=== PATIENT | male | born 1940 | race Caucasian/White ===

== ENCOUNTER 2020-07-12 21:30 | Emergency (ER) | payer OTHER, BC ==
[~2020-07-12] VITALS: Ht 160 cm; Wt 56.7 kg
[2020-07-12 21:46] VITALS: Ht 160 cm; Wt 56.7 kg
[2020-07-12 22:59] LABS: PLATELET COUNT 208 x10^3mcL (152-348)
[2020-07-12 23:05] LABS: RED CELL DISTRIBUTION WIDTH 19.9 % (12.1-16.2)
[2020-07-12 23:21] LABS: CALCIUM 6.5 mg/dL (8.5-10.1); CARBON DIOXIDE 24.5 mmol/L (21-32); CHLORIDE SERUM 100 mmol/L (98-107); CREATININE SERUM 0.7 mg/dL (0.7-1.3); GLUCOSE SERUM 122 mg/dL (74-106); POTASSIUM SERUM 3.8 mmol/L (3.5-5.1); SODIUM SERUM 136 mmol/L (136-145)
[2020-07-12 23:26] LABS: ALKALINE PHOSPHATASE 775 U/L (46-116); ALT/SGPT 47 U/L (16-63); AST/SGOT 182 U/L (15-37); BILIRUBIN TOTAL 0.7 mg/dL (0.20-1.00); MAGNESIUM 2.7 mg/dL (1.8-2.4); TOTAL PROTEIN, SERUM 6.2 g/dL (6.4-8.2)
[2020-07-12 23:30] LABS: ALBUMIN 2.8 g/dL (3.4-5.0)
[2020-07-13 00:16] LABS: MONOCYTE 12 % (0-7); SEGMENTED NEUTROPHILS 65 % (37-75); rbc morphology (normal/abnorm) NORMAL (NORMAL)
[2020-07-13 02:25] VITALS: BP 127/72
== END 2020-07-13 02:25 | disposition home or self-care (01) ==
LOC: ED 21:30
PROVIDERS: Emergency Medicine
DX: S61.215A Laceration without foreign body of left ring finger without damage to nail, initial encounter (principal); S00.83XA Contusion of other part of head, initial encounter; W18.30XA Fall on same level, unspecified, initial encounter; Y93.89 Activity, other specified; Y92.89 Other specified places as the place of occurrence of the external cause; Y99.8 Other external cause status; E86.0 Dehydration
CPT/HCPCS: 83880; J2001; J3411; J3490; J7030